=== PATIENT | male | born 1955 | race Caucasian/White ===

== ENCOUNTER 2020-11-28 10:10 | Emergency (ER) | payer MEDICAID, MEDICARE ==
--- NOTE | 2020-11-28 10:18 | NUR ---
Attempted to traige pt twice, pt was not found in the ER waiting room or outside ER.
== END 2020-11-28 10:29 | disposition left against medical advice (07) ==
LOC: ER 10:10
DX: Z53.21 Procedure and treatment not carried out due to patient leaving prior to being seen by health care provider (principal)